=== PATIENT | female | born 1965 | race American Indian/Alaskan Native ===

== ENCOUNTER 2018-12-30 05:23 | Inpatient (IN) | payer OTHER ==
[2018-12-30 05:58] LABS: Basophils # (Auto) 0.2 K/mm3 (0.0-0.1); Basophils % (Auto) 0.9 % (0.0-1.8); Eosinophils # (Auto) 0.1 K/mm3 (0.0-0.4); Eosinophils % (Auto) 0.4 % (0.0-4.3); Hemoglobin 12.6 gm/dl (10.1-14.3); Lymphocytes # (Auto) 2.5 K/mm3 (1.2-5.4); Lymphocytes % (Auto) 14.1 % (13.4-35.0); Mean Corpuscular HGB Conc 33 % (30-34); Mean Corpuscular Volume 86 fl (79-97); Monocytes # (Auto) 1.5 K/mm3 (0.0-0.8); Monocytes % (Auto) 8.3 % (0.0-7.3); Platelet Count 326 K/mm3 (140-440); Red Cell Distribution Width 14.8 % (13.2-15.2)
[2018-12-30 06:14] LABS: Alanine Aminotransferase 11 units/L (7-56); Albumin 4.2 g/dL (3.9-5); BUN/Creatinine Ratio 26; Blood Urea Nitrogen 23 mg/dL (7-17); Hemolysis Index 10
[2018-12-30] MEDS ORDERED: NACL 0.9% 1000 ML 1,000 ML IV ONE ×2 (06:33→09:09)
--- NOTE | 2018-12-30 06:44 | Emergency Department Report ---
ED General Adult HPI - General Chief complaint: Abdominal Pain Stated complaint: L SIDE PAIN Time Seen by Provider: 12/30/18 06:28 Source: patient Mode of arrival: Ambulatory Limitations: No Limitations - History of Present Illness Initial comments: This is a 49-year-old female with abdominal pain that she has had for the past 3 days. She states that she has had minimal diarrhea or normal bowel movements. She has not been vomiting and has had some nausea. It appears that the pain is most predominant in the right upper quadrant but also effects the right flank. Patient denies any relationship with urinating. She states that she has no symptoms either. She is status post 2 C-sections. She's had no prior abdominal pain related diagnosis she states. She knows nothing about the presence or absence of gallstones. -: Gradual Location: abdomen Radiation: non-radiation Severity scale (0 -10): 10 Quality: aching Consistency: constant Improves with: none Worsens with: none Associated Symptoms: nausea/vomiting, other Treatments Prior to Arrival: none - Related Data Home Medications Medication Instructions Recorded Confirmed Last Taken Lisinopril [Zestril] 12/30/18 1 Day Ago ~12/29/18 glipiZIDE [glipiZIDE XL] 10 mg 12/30/18 1 Day Ago ~12/29/18 Allergies Allergy/AdvReac Type Severity Reaction Status Date / Time codeine Allergy Hives Verified 12/30/18 05:25 ED Review of Systems ROS: Stated complaint: L SIDE PAIN Other details as noted in HPI Constitutional: denies: chills, fever Eyes: denies: eye pain, eye discharge, vision change ENT: denies: ear pain, throat pain Respiratory: denies: cough, shortness of breath, wheezing Cardiovascular: denies: chest pain, palpitations Endocrine: no symptoms reported Gastrointestinal: abdominal pain, nausea. denies: diarrhea Genitourinary: denies: urgency, dysuria, discharge Musculoskeletal: denies: back pain, joint swelling, arthralgia Skin: denies: rash, lesions Neurological: denies: headache, weakness, paresthesias Psychiatric: denies: anxiety, depression Hematological/Lymphatic: denies: easy bleeding, easy bruising ED Past Medical Hx - Past Medical History Previous Medical History?: Yes Hx Hypertension: Yes Hx Diabetes: Yes - Surgical History Past Surgical History?: Yes Additional Surgical History: B/L knee - Social History Smoking Status: Never Smoker Substance Use Type: None - Medications Home Medications: Home Medications Medication Instructions Recorded Confirmed Last Taken Type Lisinopril [Zestril] 12/30/18 1 Day Ago History ~12/29/18 glipiZIDE [glipiZIDE XL] 10 mg 12/30/18 1 Day Ago History ~12/29/18 ED Physical Exam - General Limitations: No Limitations General appearance: alert, in no apparent distress - Head Head exam: Present: atraumatic, normocephalic - Eye Eye exam: Present: normal appearance. Absent: scleral icterus - ENT ENT exam: Present: mucous membranes moist - Neck Neck exam: Present: normal inspection - Respiratory Respiratory exam: Present: normal lung sounds bilaterally. Absent: respiratory distress - Cardiovascular Cardiovascular Exam: Present: regular rate, normal rhythm. Absent: systolic mur mur, diastolic murmur, rubs, gallop - GI/Abdominal GI/Abdominal exam: Present: soft, tenderness (found in the right upper quadrant negative Schmidt's), normal bowel sounds. Absent: distended, guarding, rebound, rigid - Extremities Exam Extremities exam: Present: normal inspection - Back Exam Back exam: Present: normal inspection, CVA tenderness (R) (appears present). Absent: CVA tenderness (L), muscle spasm, paraspinal tenderness, vertebral tenderness - Neurological Exam Neurological exam: Present: alert, oriented X3, CN II-XII intact. Absent: motor sensory deficit - Psychiatric Psychiatric exam: Present: normal affect, normal mood - Skin Skin exam: Present: warm, dry, intact, normal color. Absent: rash ED Course Vital Signs 12/30/18 05:32 Temperature 98.6 F Pulse Rate 112 H Respiratory 14 Rate Blood Pressure 198/113 [Right] O2 Sat by Pulse 99 Oximetry - Reevaluation(s) Reevaluation #1: Discussed with Dr. Kc admitted to Dr. Osorio. 12/30/18 09:07 ED Medical Decision Making - Lab Data Result diagrams: 12/30/18 05:47 12/30/18 05:47 Laboratory Results - last 24 hr 12/30/18 12/30/18 05:47 05:47 WBC 17.7 H RBC 4.40 Hgb 12.6 Hct 38.0 MCV 86 MCH 29 MCHC 33 RDW 14.8 Plt Count 326 Lymph % (Auto) 14.1 [place] % (Auto) 8.3 H Eos % (Auto) 0.4 Baso % (Auto) 0.9 Lymph # 2.5 [place] # 1.5 H Eos # 0.1 Baso # 0.2 H Seg Neutrophils % 76.3 H Seg Neutrophils # 13.5 H Sodium 137 Potassium 4.6 Chloride 98.5 Carbon Dioxide 24 Anion Gap 19 BUN 23 H Creatinine 0.9 Estimated GFR > 60 BUN/Creatinine Ratio 26 Glucose 249 H Calcium 10.0 Total Bilirubin 0.60 AST 12 ALT 11 Alkaline Phosphatase 70 Total Protein 8.3 H Albumin 4.2 Albumin/Globulin Ratio 1.0 Laboratory Results - last 24 hr 12/30/18 12/30/18 12/30/18 05:47 05:47 05:47 WBC 17.7 H RBC 4.40 Hgb 12.6 Hct 38.0 MCV 86 MCH 29 MCHC 33 RDW 14.8 Plt Count 326 Lymph % (Auto) 14.1 [place] % (Auto) 8.3 H Eos % (Auto) 0.4 Baso % (Auto) 0.9 Lymph # 2.5 [place] # 1.5 H Eos # 0.1 Baso # 0.2 H Seg Neutrophils % 76.3 H Seg Neutrophils # 13.5 H Sodium 137 Potassium 4.6 Chloride 98.5 Carbon Dioxide 24 Anion Gap 19 BUN 23 H Creatinine 0.9 Estimated GFR > 60 BUN/Creatinine Ratio 26 Glucose 249 H Calcium 10.0 Total Bilirubin 0.60 AST 12 ALT 11 Alkaline Phosphatase 70 Total Protein 8.3 H Albumin 4.2 Albumin/Globulin Ratio 1.0 Lipase 24 HCG, Qual Urine Color Urine Turbidity Urine pH Ur Specific [place] Urine Protein Urine Glucose (UA) Urine Ketones Urine Blood Urine Nitrite Urine Bilirubin Urine Urobilinogen Ur Leukocyte Esterase Urine WBC (Auto) Urine RBC (Auto) U Epithel Cells (Auto) Urine Bacteria (Auto) Urine WBC Clumps 12/30/18 12/30/18 06:47 Unknown WBC RBC Hgb Hct MCV MCH MCHC RDW Plt Count Lymph % (Auto) [place] % (Auto) Eos % (Auto) Baso % (Auto) Lymph # [place] # Eos # Baso # Seg Neutrophils % Seg Neutrophils # Sodium Potassium Chloride Carbon Dioxide Anion Gap BUN Creatinine Estimated GFR BUN/Creatinine Ratio Glucose Calcium Total Bilirubin AST ALT Alkaline Phosphatase Total Protein Albumin Albumin/Globulin Ratio Lipase HCG, Qual Negative Urine Color Yellow Urine Turbidity Cloudy Urine pH 5.0 Ur Specific [place] 1.031 H Urine Protein 100 mg/dl Urine Glucose (UA) >=500 Urine Ketones Neg Urine Blood Mod Urine Nitrite Pos Urine Bilirubin Neg Urine Urobilinogen < 2.0 Ur Leukocyte Esterase Lg Urine WBC (Auto) > 182.0 H Urine RBC (Auto) 14.0 U Epithel Cells (Auto) 6.0 Urine Bacteria (Auto) 2+ Urine WBC Clumps 3+ - Radiology Data interpreted by me: Ultrasound studies were unremarkable FINDINGS: Partially visualized intrathoracic contents are unremarkable. The liver, gallbladder, pancreas, spleen, and adrenal glands are unremarkable. Kidneys are normal in size, axis and position. There is urothelial thickening and enhancement within the right greater than left renal pelvis and ureter. Mild right hydroureteronephrosis. Contrast extends throughout the ectatic right ureter on delayed phase imaging. Urinary bladder wall is also thickened and enhancing. Small and large bowel are normal in caliber. Appendix is normal. No free air, free fluid, or lymphadenopathy identified. Aorta is normal in course and caliber. Superficial soft tissues are unremarkable. No acute or aggressive appearing skeletal findings. IMPRESSION: Urothelial thickening and enhancement with associated mild right hydroureteronephrosis is most likely infectious in etiology. Correlation for clinical findings of pyelonephritis is requested. In the absence of infectious symptoms, urology follow-up is recommended as malignancy is also possible (but thought less likely.) Critical care attestation.: If time is entered above; I have spent that time in minutes in the direct care of this critically ill patient, excluding procedure time. ED Disposition Clinical Impression: Pyelonephritis, acute, Uncontrolled hypertension Vomiting Qualifiers: Vomiting type: unspecified Vomiting Intractability: non-intractable Nausea presence: with nausea Qualified Code(s): R11.2 - Nausea with vomiting, unspecified Disposition: - TO HOME OR SELFCARE Is pt being admited?: Yes Does the pt Need Aspirin: Yes Condition: Stable Instructions: Abdominal Pain (ED), Hypertension (ED) Time of Disposition: 09:09
--- NOTE | 2018-12-30 07:39 | Cat Scan Report ---
FINAL REPORT EXAM: CT ABDOMEN PELVIS W CON HISTORY: RUQ and flank pain TECHNIQUE: CT images are acquired through the Abdomen and Pelvis arterial and delayed phases followi ng intravenous administration of contrast. Transaxial, coronal and sagittal reformations are provided . PRIORS: None FINDINGS: Partially visualized intrathoracic contents are unremarkable. The liver, gallbladder, pancreas, spleen, and adrenal glands are unremarkable. Kidneys are normal in size, axis and position. There is urothelial thickening and enhancement within the right greater than left renal pelvis and ureter. Mild right hydroureteronephrosis. Contrast exten ds throughout the ectatic right ureter on delayed phase imaging. Urinary bladder wall is also thicken ed and enhancing. Small and large bowel are normal in caliber. Appendix is normal. No free air, free fluid, or lymphade nopathy identified. Aorta is normal in course and caliber. Superficial soft tissues are unremarkable. No acute or aggressive appearing skeletal findings. IMPRESSION: Urothelial thickening and enhancement with associated mild right hydroureteronephrosis is most likely infectious in etiology. Correlation for clinical findings of pyelonephritis is requested. In the abs ence of infectious symptoms, urology follow-up is recommended as malignancy is also possible (but tho ught less likely.)
[2018-12-30] MEDS ORDERED: MORPHINE IV ONE (08:14)
[2018-12-30] MEDS ORDERED: ZOFRAN IV ONE (08:14)
[2018-12-30] MEDS ORDERED: ROCEPHIN/NS 1 GM/50 ML 1 GM/50 ML BAG IV ONE (08:25)
--- NOTE | 2018-12-30 08:42 | Ultrasound Report ---
ULTRASOUND ABDOMEN LIMITED: TECHNIQUE: Transabdominal ultrasound with color Doppler interrogation. HISTORY: Right upper quadrant abdominal pain. COMPARISON: none. FINDINGS: LIVER: Normal. BILIARY SYSTEM: Normal. PANCREAS: Normal. RIGHT KIDNEY: Normal. PROXIMAL AORTA: Normal. ASCITES: None. IMPRESSION: Unremarkable exam.
--- NOTE | 2018-12-30 08:42 | Ultrasound Report ---
ULTRASOUND RENAL BILATERAL HISTORY: Right flank pain. TECHNIQUE: transabdominal ultrasound with color Doppler interrogation. FINDINGS: The right kidney measures 9.9cm. Right renal cortex: 1.4cm. The left kidney measures 9.6cm. Left renal cortex: 1.7cm. Scans of the kidneys show normal renal contours. There is normal central calyceal clustering and good preservation of the cortical thickness. There is no evidence of mass or hydronephrosis. The views of the bladder and the region of the ureters appear normal. IMPRESSION: Unremarkable renal ultrasound.
[2018-12-30 08:44] LABS: Bacteria,Urine 2+ /HPF (Negative); Bilirubin,Urine NEG (Negative); Blood,Urine MOD (Negative); Color,Urine Yellow (Yellow); Urobilinogen,Urine < 2.0 mg/dL (<2.0)
[2018-12-30 08:45] LABS: WBC,Urine > 182.0 /HPF (0.0-6.0)
[2018-12-30] MEDS: BABY ASPIRIN PO SCH (11:28)
--- NOTE | 2018-12-30 11:31 | History and Physical Report ---
History of Present Illness Date of examination: 12/30/18 Date of admission: 12/30/18 09:10 Chief complaint: Right-sided abdominal pain and not feeling well last 2 days History of present illness: 53-year-old obese -[place] female patient significant past medical his tory of hypertension type 2 diabetes mellitus presented to the emergency room with abdominal pain and not feeling well for the last 2-3 days Patient also complains of mild dilated aortic nausea no vomiting Patient denies any fever, but c/o pain in the right-sided abdomen and flank, grades between 2-3/10, not associated with fever or chills. Denies urinary symptoms Patient workup is consistent with leukocytosis with WBC of 17.7, urinary tract infection on UA CT abdomen and pelvis, appendix and small and large bowels are normal, ureteral thickening and enhancement with associated mild right hydro ureteral nephrosis, probably infectious, Possible pyelonephritis, Renal ultrasound :normal study Abdominal ultrasound; normal study Past History Past Medical History: diabetes, hypertension Past Surgical History: hysterectomy, Other (bilateral knee surgery) Social history: lives with family, full code. denies: smoking, alcohol abuse, prescription drug abuse Family history: hypertension Medications and Allergies Allergies Allergy/AdvReac Type Severity Reaction Status Date / Time Sulfa (Sulfonamide Allergy Intermediate Unknown Verified 12/30/18 11:39 Antibiotics) codeine Allergy Hives Verified 12/30/18 11:39 Home Medications Medication Instructions Recorded Confirmed Last Taken Type Lisinopril [Zestril] 10 mg PO DAILY 12/30/18 12/30/18 1 Day Ago History ~12/29/18 glipiZIDE [glipiZIDE XL] 10 mg PO DAILY 12/30/18 12/30/18 1 Day Ago History ~12/29/18 hydrALAZINE [Apresoline TAB] 25 mg PO Q8HR #90 tablet 01/02/19 Unknown Rx levoFLOXacin [Levaquin] 750 mg PO QDAY #7 tablet 01/02/19 Unknown Rx Active Meds: Active Medications Aspirin (Baby Aspirin) 81 mg PO QDAY PADMA Last Admin: 12/30/18 11:28 Dose: 81 mg Documented by: Sodium Chloride (Nacl 0.9% 1000 Ml) 1,000 mls @ 125 mls/hr IV ONCE ONE Stop: 12/30/18 17:08 Last Admin: 12/30/18 11:30 Dose: 125 mls/hr Documented by: Review of Systems Constitutional: fatigue, weakness, no weight loss, no weight gain, no fever, no chills Ears, nose, mouth and throat: no nasal congestion, no nasal discharge Cardiovascular: no chest pain, no orthopnea, no palpitations Respiratory: no cough with sputum, no shortness of breath Gastrointestinal: abdominal pain, nausea, diarrhea, no vomiting Genitourinary Female: flank pain, no dysuria, no urinary frequency Musculoskeletal: no neck stiffness, no morning stiffness, no myalgias, no arthritis Integumentary: no rash, no lesions Neurological: weakness, no seizures, no syncope Psychiatric: no anxiety, no depression Endocrine: no cold intolerance, no heat intolerance, no polydipsia, no polyuria Hematologic/Lymphatic: no easy bruising, no easy bleeding Allergic/Immunologic: no urticaria, no allergic rhinitis Exam - Constitutional Vitals: Temp Pulse Resp BP Pulse Ox 98.3 F 99 H 20 138/80 100 12/30/18 09:59 12/30/18 09:59 12/30/18 09:59 12/30/18 09:59 12/30/18 09:59 General appearance: Present: no acute distress, well-nourished, obese - EENT Eyes: Present: PERRL, EOM intact - Neck Neck: Present: supple, normal ROM - Respiratory Respiratory effort: normal Respiratory: bilateral: diminished, negative: rales, rhonchi, wheezing - Cardiovascular Rhythm: regular Heart Sounds: Present: S1 & S2 - Extremities Extremities: no ischemia, No edema - Abdominal General gastrointestinal: Present: soft, non-tender, non-distended, normal bowel sounds - Integumentary Integumentary: Present: clear, warm - Musculoskeletal Musculoskeletal: strength equal bilaterally, generalized weakness - Psychiatric Psychiatric: appropriate mood/affect, cooperative - Neurologic Neurologic: CNII-XII intact, moves all extremities Results - Labs CBC & Chem 7: 12/31/18 04:33 12/31/18 04:33 Labs: Abnormal lab results 12/30/18 12/30/18 12/30/18 Range/Units 05:47 05:47 Unknown WBC 17.7 H (4.5-11.0) K/mm3 [place] % (Auto) 8.3 H (0.0-7.3) % [place] # 1.5 H (0.0-0.8) K/mm3 Baso # 0.2 H (0.0-0.1) K/mm3 Seg Neutrophils % 76.3 H (40.0-70.0) % Seg Neutrophils # 13.5 H (1.8-7.7) K/mm3 BUN 23 H (7-17) mg/dL Glucose 249 H (65-100) mg/dL Total Protein 8.3 H (6.3-8.2) g/dL Ur Specific [place] 1.031 H (1.003-1.030) Urine WBC (Auto) > 182.0 H (0.0-6.0) /HPF Assessment and Plan --Possible pyelonephritis; IV antibiotics, blood cultures, urine cultures, IV fluids Supportive care --? Hydroureteral nephrosis on CT abdomen and pelvis; However hydroureteral nephrosis findings are not present on renal ultrasound Not present on abdominal ultrasound Closely monitor --Sepsis secondary to UTI; present on admission Hydronephrosis and, follow cultures, supportive care --Type 2 diabetes mellitus; moderate control Accu-Chek sliding scale coverage and ADA diet oral hypoglycemics --Hypertension; resume home antihypertensives and when necessary medications --Obesity; BMI 32.6 advised weight reduction and medically stable --DVT prophylaxis; Lovenox Assessment monitor the patient and adjust management as needed Possible discharge in 1-2 invasive stable In view of sepsis secondary to pyelonephritis and UTI Patient may need inpatient stay for further evaluation and management I spent 40 minutes coordinating this admission Plan of care is reviewed with the patient as well as her nurse
[2018-12-30] MEDS ORDERED: APRESOLINE IV PRN (11:35)
[2018-12-30] MEDS: MORPHINE IV PRN ×3 (12:20→22:05)
[2018-12-30] MEDS: APRESOLINE PO SCH ×2 (13:22→22:04)
[2018-12-30] MEDS: ZESTRIL PO SCH (13:22)
[2018-12-30] MEDS: HumaLOG SUB-Q SCH ×2 (17:26→22:03)
[2018-12-30] MEDS: GLUCOTROL XL PO SCH (17:28)
[2018-12-30] MEDS: NACL 0.9% 1000 ML 1,000 ML IV SCH (22:06)
[2018-12-31 05:05] LABS: Basophils # (Auto) 0.1 K/mm3 (0.0-0.1); Basophils % (Auto) 1.3 % (0.0-1.8); Eosinophils # (Auto) 0.1 K/mm3 (0.0-0.4); Eosinophils % (Auto) 0.7 % (0.0-4.3); Hematocrit 33.7 % (30.3-42.9); Hemoglobin 11.2 gm/dl (10.1-14.3); Lymphocytes # (Auto) 2.2 K/mm3 (1.2-5.4); Lymphocytes % (Auto) 21.2 % (13.4-35.0); Mean Corpuscular HGB Conc 33 % (30-34); Mean Corpuscular Volume 87 fl (79-97); Monocytes # (Auto) 0.8 K/mm3 (0.0-0.8); Platelet Count 291 K/mm3 (140-440); Red Blood Count 3.88 M/mm3 (3.65-5.03); Red Cell Distribution Width 14.6 % (13.2-15.2)
[2018-12-31 05:23] LABS: BUN/Creatinine Ratio 21; Blood Urea Nitrogen 15 mg/dL (7-17); Calcium 8.8 mg/dL (8.4-10.2); Hemolysis Index 5
[2018-12-31] MEDS: APRESOLINE PO SCH ×3 (06:20→22:36)
[2018-12-31] MEDS: NACL 0.9% 1000 ML 1,000 ML IV SCH ×2 (07:20→16:33)
[2018-12-31] MEDS: HumaLOG SUB-Q SCH ×4 (08:26→22:36)
[2018-12-31] MEDS: MORPHINE IV PRN ×2 (08:58→14:29)
[2018-12-31] MEDS: GLUCOTROL XL PO SCH (09:06)
[2018-12-31] MEDS: ZESTRIL PO SCH (09:07)
[2018-12-31] MEDS: BABY ASPIRIN PO SCH (09:08)
--- NOTE | 2018-12-31 11:31 | Progress Note ---
Assessment and Plan Assessment and plan: --Possible pyelonephritis; IV antibiotics, blood cultures, urine culture positive for gram-negative rods Follow Sensitivities, IV fluids, Supportive care --? Hydroureteral nephrosis on CT abdomen and pelvis; However hydroureteral nephrosis findings are not present on renal ultrasound Not present on abdominal ultrasound Closely monitor --Sepsis secondary to UTI; present on admission Empiric antibiotics, gram-negative rods, follow sensitivities, supportive care --Type 2 diabetes mellitus; moderate control, A1c 11.3 Accu-Chek sliding scale coverage and ADA diet oral hypoglycemics --Hypertension; resume home antihypertensives and when necessary medications --Obesity; BMI 32.6 advised weight reduction and medically stable --DVT prophylaxis; Lovenox Assessment monitor the patient and adjust management as needed Possible discharge in 1-2 if patient is stable History Interval history: Patient seen and examined medical records reviewed Patient feels slightly better, no new complaints Urine cultures positive for Escherichia coli Vital signs noted Alert awake oriented 3 not in acute distress Hospitalist Physical - Constitutional Vitals: Temp Pulse Resp BP Pulse Ox 98.8 F 76 16 105/68 98 12/30/18 11:56 12/31/18 09:07 12/30/18 11:56 12/31/18 09:07 12/30/18 11:56 General appearance: Present: no acute distress, well-nourished, obese - EENT Eyes: Present: PERRL, EOM intact - Neck Neck: Present: supple, normal ROM - Respiratory Respiratory effort: normal Respiratory: bilateral: diminished, negative: rales, rhonchi, wheezing - Cardiovascular Rhythm: regular Heart Sounds: Present: S1 & S2 - Extremities Extremities: no ischemia, No edema - Abdominal General gastrointestinal: soft, non-tender, non-distended, normal bowel sounds - Integumentary Integumentary: Present: clear, warm - Psychiatric Psychiatric: appropriate mood/affect, cooperative - Neurologic Neurologic: CNII-XII intact, moves all extremities Results - Labs CBC & Chem 7: 12/31/18 04:33 12/31/18 04:33 Labs: Laboratory Last Values WBC 10.6 K/mm3 (4.5-11.0) 12/31/18 04:33 RBC 3.88 M/mm3 (3.65-5.03) 12/31/18 04:33 Hgb 11.2 gm/dl (10.1-14.3) 12/31/18 04:33 Hct 33.7 % (30.3-42.9) 12/31/18 04:33 MCV 87 fl (79-97) 12/31/18 04:33 MCH 29 pg (28-32) 12/31/18 04:33 MCHC 33 % (30-34) 12/31/18 04:33 RDW 14.6 % (13.2-15.2) 12/31/18 04:33 Plt Count 291 K/mm3 (140-440) 12/31/18 04:33 Lymph % (Auto) 21.2 % (13.4-35.0) 12/31/18 04:33 [place] % (Auto) 8.0 % (0.0-7.3) H 12/31/18 04:33 Eos % (Auto) 0.7 % (0.0-4.3) 12/31/18 04:33 Baso % (Auto) 1.3 % (0.0-1.8) 12/31/18 04:33 Lymph # 2.2 K/mm3 (1.2-5.4) 12/31/18 04:33 [place] # 0.8 K/mm3 (0.0-0.8) 12/31/18 04:33 Eos # 0.1 K/mm3 (0.0-0.4) 12/31/18 04:33 Baso # 0.1 K/mm3 (0.0-0.1) 12/31/18 04:33 Seg Neutrophils % 68.8 % (40.0-70.0) 12/31/18 04:33 Seg Neutrophils # 7.3 K/mm3 (1.8-7.7) 12/31/18 04:33 Sodium 138 mmol/L (137-145) 12/31/18 04:33 Potassium 3.7 mmol/L (3.6-5.0) 12/31/18 04:33 Chloride 104.1 mmol/L (98-107) 12/31/18 04:33 Carbon Dioxide 22 mmol/L (22-30) 12/31/18 04:33 Anion Gap 16 mmol/L 12/31/18 04:33 BUN 15 mg/dL (7-17) 12/31/18 04:33 Creatinine 0.7 mg/dL (0.7-1.2) 12/31/18 04:33 Estimated GFR > 60 ml/min 12/31/18 04:33 BUN/Creatinine Ratio 21 % 12/31/18 04:33 Glucose 92 mg/dL (65-100) 12/31/18 04:33 POC Glucose 82 (70-105) 12/31/18 07:57 Hemoglobin A1c 11.3 % (4-6) H 12/31/18 04:33 Calcium 8.8 mg/dL (8.4-10.2) 12/31/18 04:33 Total Bilirubin 0.60 mg/dL (0.1-1.2) 12/30/18 05:47 AST 12 units/L (5-40) 12/30/18 05:47 ALT 11 units/L (7-56) 12/30/18 05:47 Alkaline Phosphatase 70 units/L (35-129) 12/30/18 05:47 Total Protein 8.3 g/dL (6.3-8.2) H 12/30/18 05:47 Albumin 4.2 g/dL (3.9-5) 12/30/18 05:47 Albumin/Globulin Ratio 1.0 % 12/30/18 05:47 Lipase 24 units/L (13-60) 12/30/18 05:47 HCG, Qual Negative (Negative) 12/30/18 06:47 Urine Color Yellow (Yellow) 12/30/18 Unknown Urine Turbidity Cloudy (Clear) 12/30/18 Unknown Urine pH 5.0 (5.0-7.0) 12/30/18 Unknown Ur Specific [place] 1.031 (1.003-1.030) H 12/30/18 Unknown Urine Protein 100 mg/dl mg/dL (Negative) 12/30/18 Unknown Urine Glucose (UA) >=500 mg/dL (Negative) 12/30/18 Unknown Urine Ketones Neg mg/dL (Negative) 12/30/18 Unknown Urine Blood Mod (Negative) 12/30/18 Unknown Urine Nitrite Pos (Negative) 12/30/18 Unknown Urine Bilirubin Neg (Negative) 12/30/18 Unknown Urine Urobilinogen < 2.0 mg/dL (<2.0) 12/30/18 Unknown Ur Leukocyte Esterase Lg (Negative) 12/30/18 Unknown Urine WBC (Auto) > 182.0 /HPF (0.0-6.0) H 12/30/18 Unknown Urine RBC (Auto) 14.0 /HPF (0.0-6.0) 12/30/18 Unknown U Epithel Cells (Auto) 6.0 /HPF (0-13.0) 12/30/18 Unknown Urine Bacteria (Auto) 2+ /HPF (Negative) 12/30/18 Unknown Urine WBC Clumps 3+ /HPF 12/30/18 Unknown
[2018-12-31] MEDS: ROCEPHIN/NS 1 GM/50 ML 1 GM/50 ML BAG IV SCH (12:52)
[2019-01-01] MEDS: NACL 0.9% 1000 ML 1,000 ML IV SCH ×2 (04:52→16:00)
[2019-01-01] MEDS: MORPHINE IV PRN ×5 (04:54→22:11)
[2019-01-01] MEDS: APRESOLINE PO SCH ×3 (06:05→22:09)
[2019-01-01] MEDS: HumaLOG SUB-Q SCH ×4 (08:21→22:21)
[2019-01-01] MEDS: GLUCOTROL XL PO SCH (08:38)
[2019-01-01] MEDS: ROCEPHIN/NS 1 GM/50 ML 1 GM/50 ML BAG IV SCH (09:39)
[2019-01-01] MEDS: ZESTRIL PO SCH (09:39)
[2019-01-01] MEDS: BABY ASPIRIN PO SCH (09:39)
--- NOTE | 2019-01-01 10:56 | Progress Note ---
Assessment and Plan Assessment and plan: --Possible pyelonephritis; IV antibiotics, blood cultures, urine culture positive for Escherichia coli and Escherichia Sensitive to Rocephin, continue IV fluids, will DC on oral Levaquin and stable --? Hydroureteral nephrosis on CT abdomen and pelvis; However hydroureteral nephrosis findings are not present on renal ultrasound Not present on abdominal ultrasound Closely monitor --Sepsis secondary to UTI; present on admission Empiric antibiotics, gram-negative rods, follow sensitivities, supportive care --Type 2 diabetes mellitus; moderate control, A1c 11.3 Accu-Chek sliding scale coverage and ADA diet oral hypoglycemics --Hypertension; resume home antihypertensives and when necessary medications --Obesity; BMI 32.6 advised weight reduction and medically stable --DVT prophylaxis; Lovenox Continue current management Possible discharge in 1-2 days if stable History Interval history: Patient seen and examined medical records reviewed Admitted with acute pyelonephritis and UTI Seems slightly better continues to have right flank pain On IV antibiotics Patient is afebrile alert awake oriented 3 Vital signs reviewed Hospitalist Physical - Constitutional Vitals: Temp Pulse Resp BP Pulse Ox 98.3 F 75 16 125/72 99 01/01/19 05:49 01/01/19 06:05 01/01/19 05:49 01/01/19 06:05 01/01/19 05:49 General appearance: Present: no acute distress, well-nourished, obese - EENT Eyes: Present: PERRL, EOM intact, scleral icterus, conjunctival injection - Neck Neck: Present: supple, normal ROM - Respiratory Respiratory effort: normal Respiratory: bilateral: diminished, negative: rales, rhonchi, wheezing - Cardiovascular Rhythm: regular Heart Sounds: Present: S1 & S2 - Extremities Extremities: no ischemia, No edema - Abdominal General gastrointestinal: soft, non-tender, non-distended, normal bowel sounds - Integumentary Integumentary: Present: clear, warm - Psychiatric Psychiatric: appropriate mood/affect, cooperative - Neurologic Neurologic: CNII-XII intact, moves all extremities Results - Labs CBC & Chem 7: 12/31/18 04:33 12/31/18 04:33 Labs: Laboratory Last Values WBC 10.6 K/mm3 (4.5-11.0) 12/31/18 04:33 RBC 3.88 M/mm3 (3.65-5.03) 12/31/18 04:33 Hgb 11.2 gm/dl (10.1-14.3) 12/31/18 04:33 Hct 33.7 % (30.3-42.9) 12/31/18 04:33 MCV 87 fl (79-97) 12/31/18 04:33 MCH 29 pg (28-32) 12/31/18 04:33 MCHC 33 % (30-34) 12/31/18 04:33 RDW 14.6 % (13.2-15.2) 12/31/18 04:33 Plt Count 291 K/mm3 (140-440) 12/31/18 04:33 Lymph % (Auto) 21.2 % (13.4-35.0) 12/31/18 04:33 [place] % (Auto) 8.0 % (0.0-7.3) H 12/31/18 04:33 Eos % (Auto) 0.7 % (0.0-4.3) 12/31/18 04:33 Baso % (Auto) 1.3 % (0.0-1.8) 12/31/18 04:33 Lymph # 2.2 K/mm3 (1.2-5.4) 12/31/18 04:33 Mc[place] # 0.8 K/mm3 (0.0-0.8) 12/31/18 04:33 Eos # 0.1 K/mm3 (0.0-0.4) 12/31/18 04:33 Baso # 0.1 K/mm3 (0.0-0.1) 12/31/18 04:33 Seg Neutrophils % 68.8 % (40.0-70.0) 12/31/18 04:33 Seg Neutrophils # 7.3 K/mm3 (1.8-7.7) 12/31/18 04:33 Sodium 138 mmol/L (137-145) 12/31/18 04:33 Potassium 3.7 mmol/L (3.6-5.0) 12/31/18 04:33 Chloride 104.1 mmol/L (98-107) 12/31/18 04:33 Carbon Dioxide 22 mmol/L (22-30) 12/31/18 04:33 Anion Gap 16 mmol/L 12/31/18 04:33 BUN 15 mg/dL (7-17) 12/31/18 04:33 Creatinine 0.7 mg/dL (0.7-1.2) 12/31/18 04:33 Estimated GFR > 60 ml/min 12/31/18 04:33 BUN/Creatinine Ratio 21 % 12/31/18 04:33 Glucose 92 mg/dL (65-100) 12/31/18 04:33 POC Glucose 135 (70-105) H 01/01/19 07:54 Hemoglobin A1c 11.3 % (4-6) H 12/31/18 04:33 Calcium 8.8 mg/dL (8.4-10.2) 12/31/18 04:33 Total Bilirubin 0.60 mg/dL (0.1-1.2) 12/30/18 05:47 AST 12 units/L (5-40) 12/30/18 05:47 ALT 11 units/L (7-56) 12/30/18 05:47 Alkaline Phosphatase 70 units/L (35-129) 12/30/18 05:47 Total Protein 8.3 g/dL (6.3-8.2) H 12/30/18 05:47 Albumin 4.2 g/dL (3.9-5) 12/30/18 05:47 Albumin/Globulin Ratio 1.0 % 12/30/18 05:47 Lipase 24 units/L (13-60) 12/30/18 05:47 HCG, Qual Negative (Negative) 12/30/18 06:47 Urine Color Yellow (Yellow) 12/30/18 Unknown Urine Turbidity Cloudy (Clear) 12/30/18 Unknown Urine pH 5.0 (5.0-7.0) 12/30/18 Unknown Ur Specific [place] 1.031 (1.003-1.030) H 12/30/18 Unknown Urine Protein 100 mg/dl mg/dL (Negative) 12/30/18 Unknown Urine Glucose (UA) >=500 mg/dL (Negative) 12/30/18 Unknown Urine Ketones Neg mg/dL (Negative) 12/30/18 Unknown Urine Blood Mod (Negative) 12/30/18 Unknown Urine Nitrite Pos (Negative) 12/30/18 Unknown Urine Bilirubin Neg (Negative) 12/30/18 Unknown Urine Urobilinogen < 2.0 mg/dL (<2.0) 12/30/18 Unknown Ur Leukocyte Esterase Lg (Negative) 12/30/18 Unknown Urine WBC (Auto) > 182.0 /HPF (0.0-6.0) H 12/30/18 Unknown Urine RBC (Auto) 14.0 /HPF (0.0-6.0) 12/30/18 Unknown U Epithel Cells (Auto) 6.0 /HPF (0-13.0) 12/30/18 Unknown Urine Bacteria (Auto) 2+ /HPF (Negative) 12/30/18 Unknown Urine WBC Clumps 3+ /HPF 12/30/18 Unknown
[2019-01-02] MEDS: MORPHINE IV PRN (05:02)
[2019-01-02] MEDS: NACL 0.9% 1000 ML 1,000 ML IV SCH (05:04)
[2019-01-02] MEDS: APRESOLINE PO SCH (05:16)
[2019-01-02 05:17] VITALS: BP 151/85
[2019-01-02] MEDS: HumaLOG SUB-Q SCH ×2 (07:34→12:44)
[2019-01-02] MEDS: GLUCOTROL XL PO SCH (07:34)
[2019-01-02] MEDS: ROCEPHIN/NS 1 GM/50 ML 1 GM/50 ML BAG IV SCH (09:42)
[2019-01-02] MEDS: BABY ASPIRIN PO SCH (09:42)
[2019-01-02] MEDS: ZESTRIL PO SCH (09:42)
--- NOTE | 2019-01-02 12:00 | Discharge Summary ---
Providers - Providers Date of Admission: 12/30/18 09:10 Date of discharge: 01/02/19 Attending physician: CHONG GUNTER Hospitalization Reason for admission: right flank and abdominal pain/discomfort urinating Condition: Stable Pertinent studies: CT abdomen and pelvis; mild right hydrouretero nephrosis/infectious in etiology/possible pyelonephritis Abdominal ultrasound; unremarkable study Renal ultrasound; markable study Hospital course: 53-year-old female patient was admitted with, Right-sided abdominal and flank pain of 2 days' duration Patient also complains of discomfort urinating, initial workup is consistent with acute pyelonephritis, and urinary tract infection Admitted to the hospital symptomatically managed, started on empiric antibiotics, Urine cultures were positive for Escherichia coli, patient received IV Rocephin during hospital stay, and is being discharged on oral Levaquin, Patient's symptoms significantly improved Blood pressures blood sugars closely monitored medications optimized, today patient's blood sugars are in the lower range, advised to hold glipizide for 2 days, and resume as needed in consultation with primary care physician Today patient is comfortable in no new complaints vital signs stable Physical examination is unremarkable Hemodynamically and clinically stable for discharge Discussed plan of care at [facility] physician Dr. Bajwa Discharge diagnosis; --Possible pyelonephritis; urine cultures positive for Escherichia coli Received 3 days of IV Rocephin, significantly improved, discharged on oral Levaquin Total 10 days of antibiotics --? Hydroureteral nephrosis on CT abdomen and pelvis; hydroureteral nephrosis findings are not present on renal ultrasound/Abd US --Sepsis secondary to UTI; present on admission/urine cultures Escherichia coli Received IV antibiotics and discharged on oral Levaquin --Type 2 diabetes mellitus; moderate control, A1c 11.3 Accu-Chek sliding scale coverage and ADA diet oral hypoglycemics --Hypertension; antihypertensives and when necessary medications --Obesity; BMI 32.6 advised weight reduction and medically stable Disposition: -01 TO HOME OR SELFCARE Time spent for discharge: 32 min Core Measure Documentation - Palliative Care Palliative Care/ Comfort Measures: Not Applicable - Core Measures Any of the following diagnoses?: none Exam - Constitutional Vitals: Temp Pulse Resp BP Pulse Ox 98.7 F 78 16 151/85 97 01/01/19 23:21 01/02/19 05:16 01/01/19 23:21 01/02/19 05:16 01/02/19 05:15 General appearance: Present: no acute distress, well-nourished, obese - EENT Eyes: Present: PERRL, EOM intact - Neck Neck: Present: supple, normal ROM - Respiratory Respiratory effort: normal Respiratory: negative: rales, rhonchi, wheezing - Cardiovascular Rhythm: regular Heart Sounds: Present: S1 & S2 - Extremities Extremities: no ischemia, No edema - Abdominal General gastrointestinal: Present: soft, non-tender, non-distended, normal bowel sounds - Integumentary Integumentary: Present: clear, warm - Musculoskeletal Musculoskeletal: strength equal bilaterally - Psychiatric Psychiatric: appropriate mood/affect, cooperative - Neurologic Neurologic: CNII-XII intact, moves all extremities Plan Activity: no restrictions Diet: diabetic Additional Instructions: Plenty of oral fluids. If you continue to have right flank pain, advised to see private urologist for further evaluation and management. Your sugars are in the lower range, hold glipizide for 2-3 days. Checked with primary care physician and resume as needed Follow up with: PRIMARY CARE, [Referring] - 3-5 Days Prescriptions: hydrALAZINE [Apresoline TAB] 25 mg PO Q8HR #90 tablet levoFLOXacin [Levaquin] 750 mg PO QDAY #7 tablet
== END 2019-01-02 14:00 | disposition home or self-care (01) | DRG 872 ==
LOC: ED 05:23 → 3A 09:10
PROVIDERS: ADMIT Internal Medicine; ATTEND Internal Medicine
DX: A41.9 Sepsis, unspecified organism (principal); N10 Acute pyelonephritis; N13.30 Unspecified hydronephrosis; I10 Essential (primary) hypertension; B96.20 Unspecified Escherichia coli [E. coli] as the cause of diseases classified elsewhere; E11.9 Type 2 diabetes mellitus without complications; E66.9 Obesity, unspecified; Z68.32 Body mass index [BMI] 32.0-32.9, adult; Z71.3 Dietary counseling and surveillance; Z90.710 Acquired absence of both cervix and uterus; Z82.49 Family history of ischemic heart disease and other diseases of the circulatory system; Z88.5 Allergy status to narcotic agent; Z88.2 Allergy status to sulfonamides; Z79.899 Other long term (current) drug therapy
CPT/HCPCS: 36415; 74177; 76705; 76770; 80048; 80053; 81001; 82962; 83036; 83690; 84703; 85025; 87040; 87076; 87086; 87186; G0378; J0696; J1815; J2270; J2405; J7030; Q9967